=== PATIENT | male | born 1995 | race Caucasian/White ===

== ENCOUNTER 2025-05-23 16:22 | Emergency (ER) | payer OTHER ==
[~2025-05-23] VITALS: Ht 175.3 cm; Wt 140.6 kg
[2025-05-23 16:55] LABS: PLATELET COUNT (AUTO) 262 K/uL (152-348); RED BLOOD CELL COUNT(AUTO) 4.89 MIL/uL (4.06-5.63); RED CELL DISTRIBUTION WIDTH 16.6 % (12.1-16.2); WHITE BLOOD COUNT (AUTO) 14.1 K/uL (3.6-10.2)
[2025-05-23 17:06] LABS: CREATININE 2.6 mg/dL (0.6-1.3); SODIUM SERUM 138 mmol/L (136-145); UREA NITROGEN, BLOOD 15 mg/dL (7-18)
[2025-05-23 17:09] LABS: ETHANOL < 3 MG/DL (0-10)
[2025-05-23 17:12] LABS: ASPARTATE AMINOTRANSFERASE 22 U/L (15-37); TOTAL PROTEIN, SERUM 8.7 g/dL (6.4-8.2)
[2025-05-23 17:43] LABS: *BILIRUBIN,URIN 1+ (NEGATIVE); *BLOOD, URINE 2+ (NEGATIVE); *CLARITY,URINE SLIGHTLY CLOUDY (CLEAR); *COLOR,URINE YELLOW (YELLOW); *KETONES,URINE NEGATIVE (NEGATIVE); *PROTEIN,URINE 2+ (NEGATIVE); *UROBILINOGEN,URINE 0.2 E.U./dl (NORMAL); LEUKOCYTE ESTERASE ,URINE NEGATIVE (NEGATIVE); NITRITE, URINE NEGATIVE (NEGATIVE); UGLUCOSE NEGATIVE (NEGATIVE)
[2025-05-23 17:49] LABS: SQUAMOUS EPITHELIAL CELL,UR FEW /HPF (NONE SEEN)
[2025-05-23 17:53] LABS: *AMPHETAMINE, URINE NEGATIVE (NEGATIVE); *BARBITURATE, URINE NEGATIVE (NEGATIVE); *BENZODIAZEPINE, URINE NEGATIVE (NEGATIVE); *CANNABINOID, URINE POSITIVE (NEGATIVE); *COCCAINE, URINE NEGATIVE (NEGATIVE); *OPIATE, URINE POSITIVE (NEGATIVE); *PHENCYCLIDINE SCREEN,URINE NEGATIVE (NEGATIVE); FENTANYL, URINE NEGATIVE (NEGATIVE)
[2025-05-23 19:00] VITALS: BP 122/83
[2025-05-23] MEDS: IV NS 1000 ML 1,000 ML IV ONE (19:26)
[2025-05-23 20:30] VITALS: BP 120/84; TEMP 98; O2SAT 97
== END 2025-05-23 20:30 | disposition left against medical advice (07) ==
LOC: ER 16:22
DX: R40.4 Transient alteration of awareness (principal); R56.9 Unspecified convulsions; F11.10 Opioid abuse, uncomplicated; Z86.2 Personal history of diseases of the blood and blood-forming organs and certain disorders involving the immune mechanism
CPT/HCPCS: 36415; 71045; 83605; 84443; 84484; 85025; 85730; 87086; A4606; A4663; G0480; J7040